=== PATIENT | male | born 1975 | race Caucasian/White ===

== ENCOUNTER 2021-05-23 09:05 | Observation (INO) | payer OTHER ==
[~2021-05-23] VITALS: Ht 175.3 cm; Wt 84.7 kg
[2021-05-23] MEDS: IV NORMAL SALINE 1,000ML 1,000 ML IV SCH ×2 (09:15→19:15)
[2021-05-23 09:34] LABS: BASO % 0 % (0-3); EOS # 0.1 x10^3/uL (0.0-0.7); EOS % 2 % (0-3); HEMOGLOBIN 15.2 g/dL (13.0-17.5); LYMPH % 16 % (24-48); MEAN CORPUSCULAR HEMOGLOBIN 30 pg (25-35); MEAN CORPUSCULAR HGB CONC 34 g/dL (31-37); MEAN CORPUSCULAR VOLUME 88 fL (79-100); MONO # 0.4 x10^3/uL (0.0-1.1); MONO % 6 % (0-9); NEUT # 4.5 x10^3uL (1.8-7.7); NEUT % 75 % (31-73); PLATELET COUNT 312 x10^3/uL (140-400); RED BLOOD COUNT 5.11 x10^6/uL (4.30-5.70); RED CELL DISTRIBUTION WIDTH 13.5 % (11.5-14.5)
[2021-05-23 10:00] VITALS: BP 137/83
[2021-05-23] MEDS ORDERED: IOHEXOL 300 MG/ML 75 ML VIAL. IV ONE (10:00)
[2021-05-23] MEDS ORDERED: CONTRAST GIVEN. MC PRN (10:00)
[2021-05-23 10:28] LABS: ALBUMIN 4.2 g/dL (3.4-5.0); ALBUMIN/GLOBULIN RATIO 1.4 (1.0-1.7); CALCIUM 9.2 mg/dL (8.5-10.1); GFR 80.4; POTASSIUM 4.6 mmol/L (3.5-5.1); TOTAL BILIRUBIN 0.4 mg/dL (0.2-1.0); TOTAL PROTEIN 7.1 g/dL (6.4-8.2)
[2021-05-23] MEDS ORDERED: AA 4.25 %/CALCIUM/LYTES/D5W 1,000 ML IV SCH (10:30)
[2021-05-23 12:34] LABS: CLARITY,URINE CLEAR; COLOR,URINE YELLOW; GLUCOSE,URINE NEG (NEG)
[2021-05-23 12:35] LABS: BACTERIA,URINE 0 /HPF (0-FEW); NITRITE,URINE NEG (NEG); RBC,URINE 0 /HPF (0-2); UROBILINOGEN,URINE 0.2 mg/dL (0.2 mg/dL); WBC,URINE 0 /HPF (0-4)
[2021-05-23] MEDS: AA 4.25 %/CALCIUM/LYTES/D5W 2,000 ML IV SCH (12:37)
--- NOTE | 2021-05-23 13:26 | RAD ---
Exam Date: 05/23/2021 12:[address] ABDOMEN+PELVIS W Indication: Reason: ABDOMINAL PAIN NV / Spl. Instructions: / History: . TECHNIQUE: CT examination of the abdomen and pelvis was performed following the administration of no nionic intravenous contrast. One or more of the following dose reduction techniques were utilized: *Automated exposure control (AEC) *Adjustment of mA and/or kV according to patient size *Use of iterative reconstruction technique *CT scan done according to ALARA, or ALARA/IMAGE GENTLY FINDINGS: The visualized lung bases are clear. The liver, gallbladder, spleen, pancreas, adrenal glands and kidneys are normal. Urinary bladder is normal in appearance. There is no bowel obstruction or inflammation. The appendix is normal. No significant atherosclerotic calcifications are seen. No lymphadenopathy or ascites is seen. Osseous structures are intact. IMPRESSION: No evidence of acute intra-abdominal pathology. Electronically signed by: Dionisio Whipple MD (05/23/2021 1:24 PM) [facility]
[2021-05-23] MEDS: KETOROLAC 30 MG/ML VIAL. IVP PRN (13:31)
[2021-05-23 16:09] VITALS: BP_SYST 127; BP_SYST 135; BP_DIAS 87; BP_DIAS 90
--- NOTE | 2021-05-23 17:33 | RAD ---
EXAM: ULTRASOUND ABDOMEN COMPLETE CLINICAL HISTORY: Abdominal pain COMPARISON: None available. TECHNIQUE: Ultrasound of the upper abdomen was performed. FINDINGS: Liver contour is normal. Hepatopedal flow noted in the portal vein. Increased echogenicity liver pare nchyma. Right kidney measures 10.4 cm in long axis. No hydronephrosis. Gallbladder is partially distended and appears thin-walled. No pericholecystic fluid or wall thickeni ng. Spleen measures 11.6 cm in long axis. Left kidney measures 10.2 cm long axis. No hydronephrosis. Visualized portions of aorta and IVC are unremarkable. Pancreas is not seen. IMPRESSION: 1. Diffuse hepatic steatosis 2. No sonographic evidence for acute cholecystitis. 3. No hydronephrosis Electronically signed by: Cuate Ryan MD (05/23/2021 5:31 PM) K[facility]STAN
[2021-05-23] MEDS ORDERED: diphenhydrAMINE HCL 25 MG CAPSULE PO PRN ×2 (19:30)
[2021-05-23] MEDS: PANTOPRAZOLE IV 40 MG VIAL. IVP SCH (19:47)
[2021-05-23] MEDS: ONDANSETRON PF 4 MG/2 ML VIAL. IVP PRN (19:48)
[2021-05-23 20:41] VITALS: BP 131/85
--- NOTE | 2021-05-23 21:58 | HP ---
DATE OF SERVICE: 05/23/2021 ADMIT DATE: 05/23/2021 HISTORY OF PRESENT ILLNESS: A 45-year-old patient came in with abdominal pain, primarily in his left upper quadrant area of the abdomen. The patient has had previous problems with this. He has been seen down at [facility], has a diagnosis previously of pancreatic insufficiency. He recently has been losing upwards of 20 pounds in the last couple of months as a result of this. There is a question whether or not there is something more going on here, such as pancreatitis or some other abnormality to be responsible for such significant weight loss. The patient has not been able to eat as he has some significant pain. The patient does not note any change in bowel habits. Denies any melena, hematochezia or hematemesis. Does have some nausea and the pain is significant to require IV pain medication. The patient was admitted for additional supplementation of caloric intake to supplement his intake. The patient does take normally digestive enzymes to help him in his digestive situation. PAST MEDICAL HISTORY: Is that of a pancreatic insufficiency, abdominal pain, gastritis. HOME MEDICATIONS: Include that of digestive enzymes. ALLERGIES: No known drug allergies. FAMILY HISTORY: Nonremarkable. SOCIAL HISTORY: Presently, no alcohol, hard drug use. The patient is FULL CODE. REVIEW OF SYSTEMS: Otherwise denies any headaches, visual changes, blurred vision, double vision. Presently denies any chest pain, shortness of breath. Does have abdominal pain as noted primarily in the left upper quadrant area with some nausea. Denies any problem with bowels. Denies any melena, hematochezia or hematemesis. No problems urinating. Neurologically, alert and oriented. PHYSICAL EXAMINATION: GENERAL: Pleasant white male, WD, WN, NAD. VITAL SIGNS: Blood pressure 137/83, respiratory rate 20, pulse 84, afebrile, 96 on room air. HEENT: Head atraumatic, normocephalic. Eyes, PERRL. No jaundice noted. NECK: Supple. LUNGS: Clear. CARDIOVASCULAR: Regular sinus rhythm. ABDOMEN: Soft. Definite tenderness in the left mid upper quadrant area. No masses noted. No rebounding, no guarding. Positive bowel sounds, no hepatosplenomegaly noted. EXTREMITIES: No clubbing, cyanosis, nor edema. NEUROLOGIC: The patient is alert and oriented x 3. Speech fluent, spontaneous, appropriate. Cranial nerves II-XII grossly intact. LABORATORY DATA: White count 6, hemoglobin 15 and hematocrit 45. Slight increase in neutrophils of 75. Sodium and potassium 142 and 4.5, BUN and creatinine 9 and 1. Glucose slightly elevated at 122, lipase 59, on the low side. Total bilirubin 0.5. Liver enzymes show low AST of 12. Total bilirubin 0.4. Urine specific gravity 1.015, otherwise unremarkable in the differential there. A CT scan of abdomen and pelvis basically normal with no obvious pathology noted at that level. An abdominal ultrasound was also noted, showed diffuse hepatic steatosis and no evidence of acute cholecystitis. IMPRESSION: Significant weight loss, pancreatic insufficiency. The patient will be given additional caloric intake through amino acids and electrolyte intake. Continue with Clindanex to give him an additional caloric intake and see if this helps along with Protonix and adjust for other problems such as H. pylori and other possible avenues of digestive abnormalities. He has a followup appointment with Dr. Carias here in a few weeks. MIHAELA/ANNITA DR: Matt TID: [id number]
[2021-05-24 00:42] VITALS: BP 125/76
[2021-05-24] MEDS: IV NORMAL SALINE 1,000ML 1,000 ML IV SCH (04:38)
[2021-05-24] MEDS: ONDANSETRON PF 4 MG/2 ML VIAL. IVP PRN (05:49)
[2021-05-24 06:11] VITALS: BP 126/80
[2021-05-24] MEDS: PANTOPRAZOLE IV 40 MG VIAL. IVP SCH (08:38)
[2021-05-24] MEDS: AA 4.25 %/CALCIUM/LYTES/D5W 2,000 ML IV SCH (10:15)
[2021-05-24 11:00] VITALS: BP 116/74
[2021-05-24] MEDS ORDERED: METOCLOPRAMIDE HCL 10 MG/10 ML SOLUTION. PO SCH (11:30)
[2021-05-24] MEDS ORDERED: LIPASE/PROTEAS/AMYLAS 10/32/42 CAPSULE.DR. PO SCH (12:00)
[2021-05-24] MEDS: KETOROLAC 30 MG/ML VIAL. IVP PRN (12:27)
[2021-05-24] MEDS ORDERED: PANT40TA3 PO (13:03)
[2021-05-24] MEDS ORDERED: LIPA1CAP8 PO (13:03)
[2021-05-24 20:25] LABS: CHOLESTEROL/HDL RATIO 2.7
[2021-05-26 04:57] LABS: HEMOGLOBIN A1C 5.8 % (4.8-5.6)
[2021-05-26 14:09] LABS: H PYLORI IGA >35.0 units (0.0-8.9); H PYLORI IGM <9.0 units (0.0-8.9)
--- NOTE | 2021-05-31 09:26 | DS ---
DATE OF DISCHARGE: 05/24/2021 HOSPITAL COURSE: A 45-year-old male came in with severe nausea, vomiting, severe abdominal pain primarily in the left upper quadrant of his abdomen. The patient in turn had not been able to eat. He has been losing about 20 pounds here in the last several months. The patient's workup showed a BUN of 4.2. Liver enzymes actually were decreased. AST was low at 12. Sodium and potassium 142 and 4.2. A1c 5.8, white count 6, hemoglobin 15 and 45. Urine looked normal. H. pylori interesting enough, was elevated. The IgA was greater than 35. His IgG was greater than 8 and his IgM was less than 9. The patient seemed to do better on a fixed diet. He did receive clinadanex from IV nutrition to help him with his diet as he was not eating. The abdominal ultrasound showed diffuse hepatic steatosis, no sonographic evidence of acute cholecystitis. No hydronephrosis was noted. The patient did well on the clinadanex and did much better. 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 IMPRESSION: H. pylori infection of the stomach with all of the antibodies elevated, so he will need to be treated for this as an outpatient, possible gastroparesis, nausea, vomiting, abnormal weight loss acutely. PLAN: As above. He will be treated for H. pylori and make further evaluation on him as an outpatient. MIHAELA/DIPTI/LIANNA DR: MIHAELA/radha TID: [id number]
== END 2021-05-24 14:30 | disposition home or self-care (01) ==
LOC: 1 SOUTH 09:05 → INTOOBSV 09:05
PROVIDERS: ADMIT Family Medicine; ATTEND Family Medicine
DX: K86.89 Other specified diseases of pancreas (principal); Z20.822 Contact with and (suspected) exposure to COVID-19; R63.4 Abnormal weight loss; K29.70 Gastritis, unspecified, without bleeding; Z68.27 Body mass index [BMI] 27.0-27.9, adult; Z79.899 Other long term (current) drug therapy; Z98.890 Other specified postprocedural states
CPT/HCPCS: 36415; 74177; 76700; 80053; 80061; 81001; 82150; 83036; 83690; 84443; 85025; 86677; 96361; 96365; 96366; 96375; 96376; C9113; G0378; G0379; J1885; J2405; J3490; J7030; Q0163; Q9967; U0003

== ENCOUNTER → 2021-05-30 | Outpatient (CLI) | payer OTHER ==
[2021-05-24 11:00] VITALS: BP 116/74
[~2021-05-30] MED LIST: LIPA1CAP8 PO; PANT40TA3 PO
== END ==
LOC: LAB 12:24
PROVIDERS: ATTEND Family Medicine
DX: K90.3 Pancreatic steatorrhea (principal)
CPT/HCPCS: 36415; 86301

== ENCOUNTER 2021-06-20 15:52 | Emergency (ER) | payer OTHER ==
[~2021-06-20] VITALS: Ht 175.3 cm; Wt 82.7 kg
[2021-06-20] MEDS ORDERED: IV NORMAL SALINE 1,000ML 1,000 ML IV ONE (16:30)
[2021-06-20] MEDS ORDERED: ONDANSETRON PF 4 MG/2 ML VIAL. IVP ONE (16:30)
--- NOTE | 2021-06-20 16:43 | PHYS DOC ---
General Adult EDM: Chief Complaint: DIARRHEA HPI: HPI: 45-year-old male presents with diarrhea. The patient was recently hospitalized for pancreatitis and then for H. pylori. He just finished H. pylori therapy of last week. He has had several episodes of diarrhea since. He feels like he is quite dehydrated at this time. He has some right upper quadrant pain that is mild and cramping. His diarrhea seems to have subsided just before arrival. He did take antidiarrheal medicines at home. He denies fever or chills. Review of Systems: Review of Systems: Constitutional: Denies fever or chills Eyes: Denies change in visual acuity HENT: Denies nasal congestion or sore throat Respiratory: Denies cough or shortness of breath Cardiovascular: Denies chest pain or edema GI: Right upper quadrant abdominal pain, diarrhea : Denies dysuria Musculoskeletal: Denies back pain or joint pain Integument: Denies rash Neurologic: Denies headache, focal weakness or sensory changes Endocrine: Denies polyuria or polydipsia Lymphatic: Denies swollen glands Psychiatric: Denies depression or anxiety Current Medications: Current Meds: Current Medications Medications (Trade) Dose Ordered Sig/Maximus Start Time Stop Time Status Last Admin Dose Admin Ketorolac Tromethamine (Toradol 30mg Vial) 30 mg 1X ONCE 06/20/21 16:45 06/20/21 16:46 Lorazepam (Ativan Inj) 2 mg 1X ONCE 06/20/21 16:45 06/20/21 16:46 Ondansetron HCl (Zofran) 4 mg 1X ONCE 06/20/21 16:30 06/20/21 16:32 DC Sodium Chloride 1,000 ml @ 1,000 mls/hr 1X ONCE 06/20/21 16:30 06/20/21 17:29 Allergies: Allergies: Allergies Coded Allergies Type Severity Reaction Last Updated Verified No Known Drug Allergies 05/23/21 No Physical Exam: PE: Constitutional: Well developed, well nourished, no acute distress, non-toxic appearance. [] HENT: Normocephalic, atraumatic, bilateral external ears normal, oropharynx very dry, no oral exudates, nose normal. [] Eyes: PERRLA, EOMI, conjunctiva normal, no discharge. [] Neck: Normal range of motion, no tenderness, supple, no stridor. [] Cardiovascular: Heart rate regular rhythm, no murmur [] Lungs & Thorax: Bilateral breath sounds clear to auscultation [] Abdomen: Bowel sounds normal, soft, mild right upper quadrant tenderness, no masses, no pulsatile masses. [] Skin: Warm, dry, no erythema, no rash. [] Back: No tenderness, no CVA tenderness. [] Extremities: No tenderness, no cyanosis, no clubbing, ROM intact, no edema. [] Neurologic: Alert and oriented X 3, normal motor function, normal sensory function, no focal deficits noted. [] Psychologic: Affect normal, judgement normal, mood normal. [] EKG: EKG: [] Radiology/Procedures: Radiology/Procedures: [] Heart Score: C/O Chest Pain: N/A Risk Factors: Risk Factors: DM, Current or recent (<one month) smoker, HTN, HLP, family history of CAD, obesity. Risk Scores: Score 0 - 3: 2.5% MACE over next 6 weeks - Discharge Home Score 4 - 6: 20.3% MACE over next 6 weeks - Admit for Clinical Observation Score 7 - 10: 72.7% MACE over next 6 weeks - Early Invasive Strategies Course & Med Decision Making: Course & Med Decision Making Pertinent Labs and Imaging studies reviewed. (See chart for details) Patient's labs are unremarkable. We have rehydrated him with IV normal saline. This could be viral in nature. C. difficile seems unlikely at this time. He is stable for discharge. [] Dragon Disclaimer: Dragon Disclaimer: This electronic medical record was generated, in whole or in part, using a voice recognition dictation system. Departure Departure: Impression: Primary Impression: Diarrhea Additional Impression: Dehydration Disposition: 01 HOME / SELF CARE / HOMELESS Condition: STABLE Referrals: INES FRITZ MD (PCP) Patient Instructions: Diarrhea, [id number] JOSE SIDDIQUI DO June 20, 2021 16:43
[2021-06-20] MEDS ORDERED: KETOROLAC 30 MG/ML VIAL. IVP ONE (16:45)
[2021-06-20 17:17] LABS: EOS % 3 % (0-3); HEMATOCRIT 45.8 % (39.0-53.0); HEMOGLOBIN 15.8 g/dL (13.0-17.5); LYMPH % 25 % (24-48); MEAN CORPUSCULAR HEMOGLOBIN 30 pg (25-35); MEAN CORPUSCULAR HGB CONC 35 g/dL (31-37); MEAN CORPUSCULAR VOLUME 87 fL (79-100); MONO % 15 % (0-9); NEUT % 57 % (31-73); PLATELET COUNT 284 x10^3/uL (140-400); RED BLOOD COUNT 5.24 x10^6/uL (4.30-5.70); RED CELL DISTRIBUTION WIDTH 13.3 % (11.5-14.5); WHITE BLOOD COUNT 3.9 x10^3/uL (4.0-11.0)
[2021-06-20 17:18] LABS: BASO % 0 % (0-3); EOS # 0.1 x10^3/uL (0.0-0.7); MONO # 0.6 x10^3/uL (0.0-1.1); NEUT # 2.3 x10^3uL (1.8-7.7)
[2021-06-20 17:21] LABS: CALCIUM 8.7 mg/dL (8.5-10.1); CREATININE 1.1 mg/dL (0.7-1.3); GFR 72.1; POTASSIUM 4.3 mmol/L (3.5-5.1)
[2021-06-20 17:27] LABS: ALBUMIN 3.4 g/dL (3.4-5.0); ALBUMIN/GLOBULIN RATIO 1.1 (1.0-1.7); TOTAL BILIRUBIN 0.2 mg/dL (0.2-1.0); TOTAL PROTEIN 6.4 g/dL (6.4-8.2)
[2021-06-20] MEDS ORDERED: MVI, ADULT NO.4 WITH VIT K 10 ML, FOLIC ACID INJ 1 MG, THIAMINE INJ 100 MG in IV NORMAL... IV ONE (17:45)
[2021-06-20 18:34] LABS: BARBITURATES NEG (NEG); BENZODIAZEPINES NEG (NEG); CANNABINOIDS POS (NEG); COCAINE NEG (NEG); METHADONE NEG (NEG); OPIATES NEG (NEG); PHENCYCLIDINE NEG (NEG)
[2021-06-20 18:35] LABS: AMPHETAMINE/METHAMPHETAMINE NEG (NEG)
[2021-06-20 18:42] LABS: BACTERIA,URINE 0 /HPF (0-FEW); CLARITY,URINE CLEAR; COLOR,URINE YELLOW; GLUCOSE,URINE NEG (NEG); NITRITE,URINE NEG (NEG); RBC,URINE 0 /HPF (0-2); UROBILINOGEN,URINE 0.2 mg/dL (0.2 mg/dL); WBC,URINE 0 /HPF (0-4)
[2021-06-20 19:06] VITALS: BP 101/55
== END 2021-06-20 19:07 | disposition home or self-care (01) ==
LOC: ER 15:52
DX: E86.0 Dehydration (principal); R19.7 Diarrhea, unspecified
CPT/HCPCS: 36415; 80053; 80307; 81001; 83690; 85025; 96361; 96365; 96375; 99284; J1885; J2060; J2405; J7030